=== PATIENT | female | born 1960 | race Caucasian/White ===

== ENCOUNTER 2016-09-17 05:50 | Day surgery (SDC) | payer OTHER ==
[2016-09-17] VITALS (8 sets, daily range): BP systolic 116–134; BP diastolic 71–90; PULSE 44–70; RESP 10–19; O2SAT 97–100
[~2016-09-17] VITALS: Ht 162.6 cm; Wt 58.0 kg
[~2016-09-17 05:50] MED LIST: IMI100 PO
[2016-09-17] MEDS ORDERED: Dexamethasone 4 mg/mL Inj ONE (05:51)
[2016-09-17] MEDS ORDERED: Propofol 10,000 mCg/mL 20 mL Inj ONE (05:51)
[2016-09-17] MEDS ORDERED: Ondansetron 2 mg/mL 2 mL Inj ONE (05:51)
[2016-09-17] MEDS ORDERED: fentaNYL-PF 50 mCg/mL 2 mL Inj ONE (05:51)
[2016-09-17] MEDS: Lactated Ringer's 1,000 ML IV SCH ×2 (06:00→07:58)
[2016-09-17] MEDS ORDERED: CeFAZolin Inj 2 GM in IV Premix 1 EACH IV ONE (06:00)
--- NOTE | 2016-09-17 06:41 | PCM.HPANE ---
Patient Data Surgeon Admitting Provider: Attending Provider:Brandon Montenegro DPM Primary Care Physician:Giorgi Villatoro DO Other Provider:Felton Adamson Anesthesia Reason for Visit Left Foot Soft Tissue Mass Ht/WT & BMI Height (Feet): 5 Height (Inches): 4.00 Weight (Kilograms): 58.050 Body Mass Index 21.00 Allergies Coded Allergies: codeine (Verified Allergy, Unknown, GI upset, 09/13/16) Past Anesthesia History Anesthesia History: Positive for:: Fam Anesthesia Reaction (sister had trouble waking up), Denies:: Abnormal Airway, Anesthesia Reactions, Difficult Intubation, Fam Malignant Hypertherm, Malignant Hyperthermia Diabetes History Hx Diabetes?: No MRSA MRSA: No Medications Home Meds Incl Beta Mj: No Reported Medications Aspirin 325 Mg [id number] Mg PO #1 BOTTLE 09/17/16 Ibuprofen (Advil)100 Mg [id number] Mg PO 09/17/16 Sumatriptan (Imitrex)100 Mg [id number] Mg PO PRN migraines 09/13/16 Discontinued Reported Medications Sumatriptan (Imitrex)100 Mg [id number] Mg PO PRN migraine 04/16/15 History HEENT History: Positive for:: TMJ (has nightguard, doesn't use) Denies:: Abnormal Airway Cataracts Difficult Intubation Dysphagia Hearing Problem Sinus Problem Cardiovascular History: Positive for:: Chest Pain (work up negative) Heart Murmur (as child ) Denies:: AICD Abdominal Aortic Aneurism Atrial Fibrillation Cardiac Surgery Congestive Heart Failure Edema Hypertension Irregular Heartbeat Pacemaker Rheumatic Fever Thrombophlebitis Hx of Respiratory Problem?: Yes Respiratory History: Positive for:: Pneumonia (as child ) Denies:: Asthma COPD Emphysema Oxygen Administration Tuberculosis Use of C-PAP Machine Hx Neurologic Problems?: Yes Neurological History: Positive for:: Headaches (every couple of weeks , takes imitrex ) Denies:: CVA Dementia Dizziness Multiple Sclerosis Parkinson's Disease Seizures Hx of GI Problems?: No Gastrointestinal History: Denies:: Cirrhosis Diverticulitis Gastroesphageal Reflux Gastrointestinal Bleeding Heartburn Hepatitis Hiatal Hernia Rectal Bleeding Hx of Problems?: Yes Genitourinary History: Positive for:: Kidney Stones (left kidney stone ESWL 2014, hx of right stones) Denies:: Urinary Tract Infection (past hx of) Female Hx: Denies:: Currently Problems with Breasts? Skin History: Denies:: History Skin Disorders? Pressure Ulcers Hx Musculoskeletal Problems?: Yes Musculoskeletal History: Positive for:: Musculoskeletal Trauma (left ankle soft tissue mass current admit problem) Denies:: Back Injury Joint Replacement Systemic Lupus Hx of Psycho/Social Problems?: No Hx Surgeries?: Yes (C section, bunion, ESWL) Hx Any Other Health Problems?: Yes Other History: Positive for:: Thyroid Disease (with planning official- stopped medication) Denies:: Cancer History Blood Transfusions: Denies:: Blood Transfusions Hx Diabetes: No Hx Alcohol Use: NoHx Substance Use: No Smoking Status: Never Smoker Have You Smoked inLast 12 mo: No Stop/Bang S-Snoring: Do You Snore Loudly: No T-Tired: feel tired, fatigued: No O-Obsered: Observed not breath: No P-Blood Pressure: treated: No B- Body Mass Index > 35 kg/m2: No A- Age over 50: Yes N- Neck Large Circumference: No G- Gender Male: No MAZIN Total Score: 1 MAZIN Risk Assessment: Low Risk, <3 Yes Risk Assessment Category Category 1A: Patient has history of documented sleep apnea, and HAS NOT received any narcotic, sedative or anesthesia administration during this stay. Category 1B: Patient has history of documented sleep apnea, and HAS received any narcotic , sedative or anesthesia administration during this stay Category 2: Patient has SUSPECTED Obstructive Sleep Apnea, and HAS received any narcotic , sedative or anesthesia administration during this stay. Category 3: Patient has SUSPECTED Obstructive Sleep Apnea and HAS NOT received narcotic, sedative or anesthesia administration during this stay. Category 4: Outpatient in Procedural Areas with known sleep apnea or who screen positive for High Risk via the STOP/BANG questionnaire. Exam Exam Vital Signs Vital Signs Date Time Temp Pulse Resp B/P Pulse Ox O2 Delivery O2 Flow Rate FiO2 09/17/16 06:35 35.4 44 18 134/78 98 Room Air General Appearance: Alert, Oriented X3, Cooperative, No Acute Distress HEENT/AIRWAY: MP 2 Lungs: Clear to Auscultation, Normal Air Movement Heart: Exam Unremarkable, Regular Rate/Rhythm, No Murmurs/Rubs/Gallops Meds/Labs/Diagnostics Admission Meds Current Medications Lactated Ringer's (Lr) 1,000 ml @ 120 mls/hr Q8H20M IV Last administered on t 06:00; Start 09/17/16 at 05:00; Stop 09/17/16 at 13:19 Plan Impression Patient chart reviewed, patient interviewed and anesthestic plan with risks, benefits, and alternatives discussed, and informed consent obtained. NPO Status: WATER AT 3AM ASA Physical Status: ASA1 Normal Healthy Anesthetic Plan: MAC Bene/Risks/Altern/Consents: Yes HP Complete Prior to Induction: Yes Other MAC vs GA. Pt prefers MAC Robert Figueroa MD Sep 17, 2016 06:41
[2016-09-17] MEDS ORDERED: IBUP100T47 PO (06:44)
[2016-09-17] MEDS ORDERED: ASPI325T32 PO (06:44)
[2016-09-17] MEDS ORDERED: Bupivacaine-MPF 0.5% W/EPI 30 mL Inj INFILTRATE ONE (07:31)
[2016-09-17] MEDS ORDERED: Lactated Ringer's 1,000 ML IV SCH (07:47)
[2016-09-17] MEDS ORDERED: Lactated Ringer's 500 ML IV PRN (07:47)
[2016-09-17] MEDS ORDERED: Bupivacaine-MPF 0.5% 30 mL Inj INFILTRATE ONE (07:48)
[2016-09-17] MEDS ORDERED: HYDROmorphone 1 mg/mL Inj IVPUSH PRN (07:50)
[2016-09-17] MEDS ORDERED: hydrALAZINE 20 mg/mL Inj IVPUSH PRN (07:50)
[2016-09-17] MEDS ORDERED: MetoCLOpramide 5 mg/mL 2 mL Inj IVPUSH PRN (07:50)
[2016-09-17] MEDS ORDERED: fentaNYL-PF 50 mCg/mL 2 mL Inj IVPUSH PRN (07:50)
[2016-09-17] MEDS ORDERED: Atropine 0.4 mg/mL Inj IVPUSH PRN (07:50)
[2016-09-17] MEDS ORDERED: Phenylephrine 10,000 mCg/mL Inj IVPUSH PRN (07:50)
[2016-09-17] MEDS ORDERED: Labetalol 5 mg/mL 4 mL Inj IV PRN (07:50)
[2016-09-17] MEDS ORDERED: Ondansetron 2 mg/mL 2 mL Inj IVPUSH PRN (07:50)
[2016-09-17] MEDS ORDERED: Dexamethasone 4 mg/mL Inj IVPUSH PRN (07:50)
[2016-09-17] MEDS ORDERED: EPHEDrine Sulfate 50 mg/mL Inj IVPUSH PRN (07:50)
--- NOTE | 2016-09-17 09:02 | PCM.ANEP1 ---
Post Anesthesia Phase 1 PACU Phase 1 Assessment Vital Signs Vital Signs Date Time Temp Pulse Resp B/P Pulse Ox O2 Delivery O2 Flow Rate FiO2 09/17/16 09:00 54 13 124/75 98 Room Air 09/17/16 08:55 58 10 122/76 99 Room Air 09/17/16 08:50 68 17 124/73 99 Room Air 09/17/16 08:45 36.0 70 19 119/90 100 Simple Mask 8 09/17/16 06:35 35.4 44 18 134/78 98 Room Air Anesthetic Administered: GA Level of Alertness: Awake, talking VALIENTE's with Equal Strength: Yes Pain: No Nausea or Vomiting: No Oxygen Delivery: Simple Mask Lungs: Clear to Auscultation, Normal Air Movement Robert Figueroa MD Sep 17, 2016 09:02
--- NOTE | 2016-09-17 09:03 | PCM.PODPO ---
Podiatry Operative Report Date of Service: Sep 17, 2016 Date of Service Sep 17, 2016 Pre Operative Diagnosis Soft tissue mass left ankle Post Operative Diagnosis Same Procedure Excision of soft tissue mass left ankle Surgeon Surgeon: Brandon Montenegro DPM Assistants: None Indication for Procedure Same Findings Well encapsulated fibrous mass posterolateral left ankle Details of Procedure Patient was placed on the table in the supine position and surgical timeout observed. Upon initiation of general anesthesia by the anesthesiologist and a well-padded pneumatic ankle tourniquet was applied. The site was infiltrated with 5 cc 0.5% Marcaine with epinephrine And the left foot prepped and draped in usual sterile manner. The foot was then prepped and draped in the usual sterile manner. Attention was directed to the approximately 2 x 5 cm crescentic slightly mobile soft tissue mass just posterior to the lateral malleolus where an approximately 4 cm curvilinear incision was made paralleling normal skin lines. Dissection continued via sharp and blunt dissection. The lesion was noted to be deep to the deep fascia which was preserved and reflected. There was a well defined plane between the mass and surrounding soft tissues and it was excised uneventfully from distal to proximal. The sural nerve was retracted posteriorly. There was noted to be adherence to the periosteum overlying the lateral malleolus and proximally there appeared to be a fibrous stalk extending to the posterior subtalar joint region. This was followed 2-3 cm and transected utilizing a Bovie apparatus, it did not appear vascular. Small superficial bleeders were ligated with a Bovie. Inspection of the site post excision did not reveal any further abnormal or pathologic- appearing soft tissues, the site was irrigated, subcutaneous tissues were reapproximated with 4-0 Vicryl and skin with 4-0 Prolene with care taken to demetri the wound margins. An additional 4 cc 0.5% Marcaine plain was infiltrated to augment postoperative analgesia. An antibiotic ointment Adaptic dressing was applied followed by a mildly compressive gauze bandage, the soft tissue specimen was sent to pathology for gross and microscopic exam. The patient was extubated uneventfully and left the operating suite in apparently satisfactory condition. There were no complications Grafts, Implants: None Complications There were no periprocedural complications identified. Condition Stable Anesthetic Administered: GA Drains: None Catheters: None Output, Estimated Blood Loss: 2 Blood Admin during surgery: No Surgical Cast or Splint: None Surgical Specimen Removed: Yes Specimen sent to Pathology: Yes Post Operative Plan Postoperative instructions have been reviewed as well as postoperative shoe and return appointment made 5 days postop Brandon Montenegro DPM Sep 17, 2016 09:03
[2016-09-17] MEDS ORDERED: oxyCODONE-Acetamin 5-325 mg Tablet PO PRN (09:05)
--- NOTE | 2016-09-17 12:33 | PCM.ANEP2 ---
Post Anesthesia Evaluation ASA/CMS Post Anesthesia VS in Patient's Normal Range?: Yes Resp Stable; Airway Patent?: Yes CV Function & Hydration Stable: Yes Mental Status Recovered?: Yes Pain control Satisfactory?: Yes N/V Control Satisfactory?: Yes Robert Figueroa MD Sep 17, 2016 12:33
--- NOTE | 2016-09-21 10:01 | PATH ---
SURGICAL PATHOLOGY Attending Physician:Brandon Montenegro DPM CASE STATUS: Signed Out PATIENT NAME: TAN JORDAN PID: [id number] : 1960 DATE COLLECTED:09/17/2016 21:56 SPECIMEN: Soft Tissue Mass, Biopsy CLINICAL HISTORY: LEFT FOOT SOFT TISSUE MAS LEFT ANKLE, SLOWLY ENLARGING MASS 1). LEFT ANKLE MASS FINAL DIAGNOSIS: 1.LEFT ANKLE MASS EXCISION: NEURILEMOMA (BENIGN SCHWANNOMA), TOTALLY EXCISED. ICD10 CODE D36.10 GROSS DESCRIPTION: Received in formalin, labeled with the patient' s name and "left ankle mass", is one spongy, yellow tissue fragment measuring 2.5 x 2.0 x 1.5 cm. The fragment is inked blue. Sectioning reveals firm, dark yellow, needle foreign tissue. Biomedical Equipment Tech sections are submitted in cassette 1A. ([id number]) MICRO DESCRIPTION: See diagnosis. ICD-9 CODES: CPT CODES: 1: 01281 Electronically Signed Out Pasquale Felder MD [facility] [address], [place] [address] Technical component performed at [facility], [address] [place] [address] Ave[address], [place], [address]
== END 2016-09-17 23:59 | disposition home or self-care (01) ==
LOC: SAS 05:50
PROVIDERS: ATTEND Podiatrist
DX: D36.10 Benign neoplasm of peripheral nerves and autonomic nervous system, unspecified (principal); G43.909 Migraine, unspecified, not intractable, without status migrainosus
CPT/HCPCS: 27634; J0690; J1100; J2250; J2405; J3010; J7120